=== PATIENT | male | born 1965 | race Caucasian/White ===

== ENCOUNTER 2023-09-20 06:11 | Emergency (ER) | payer OTHER ==
[2023-09-20] MEDS ORDERED: LIDOCAINE 2% W/EPI 1:200,000 MPF 20 ML VIAL IM ONE (06:37)
[2023-09-20] MEDS ORDERED: CODEINE 30MG/APAP 300MG TAB ONE (06:37)
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
[2023-09-20 07:36] VITALS: BP 127/89; TEMP 97.9; O2SAT 99
== END 2023-09-20 07:31 ==
LOC: ER 06:11
DX: S01.312A Laceration without foreign body of left ear, initial encounter (principal); S01.01XA Laceration without foreign body of scalp, initial encounter; Y00.XXXA Assault by blunt object, initial encounter
CPT/HCPCS: 99284